=== PATIENT | male | born 1965 | race Two or more races ===

== ENCOUNTER 2024-12-10 14:48 | Emergency (ER) | payer MEDICAID ==
[~2024-12-10] VITALS: Ht 180.3 cm; Wt 71.3 kg
[2024-12-10 14:50] VITALS: BP 181/131; RESP 18; TEMP 97.3; O2SAT 96
--- NOTE | 2024-12-10 15:40 | DVH ---
EXAM: XY CHEST XRAY 1 VIEW Indication: Chest Pain Technique: Single frontal view of the chest was obtained Comparison: XR CHEST 1 VIEW on DOS: 08/21/24, XR CHEST 2 VIEWS on DOS: 08/01/23 FINDINGS: Lines and Tubes: None Lungs: Small bilateral pleural effusions with pleural calcifications and pleural thickening. No pneumothorax. Cardiomediastinal contours: Unremarkable. Atherosclerotic vascular calcifications of the thoracic ao rta are noted. Bones: No acute osseous abnormality. IMPRESSION: Small bilateral pleural effusions with pleural calcifications and pleural thickening.
[2024-12-10 16:26] LABS: Hematocrit 50.4 % (41.0-53.0); Hemoglobin 16.8 g/dL (13.5-17.5); Mean Corpuscular Hemoglobin 31.6 pg (28.0-32.0); Mean Corpuscular Volume 94.5 fL (80.0-100.0); Nucleated Red Blood Cells % 0.2 %
[2024-12-10 16:30] LABS: Chloride 107 mmol/L (98-107); Potassium 4.1 mmol/L (3.5-5.1); Sodium 141 mmol/L (136-145)
[2024-12-10 16:31] LABS: Anion Gap 9 (5-15); Carbon Dioxide 25 mmol/L (20-31)
[2024-12-10 16:32] LABS: Calcium 8.7 mg/dL (8.7-10.4)
[2024-12-10 16:36] LABS: BUN/Creatinine Ratio 13.1 (10.0-20.0); Blood Urea Nitrogen 17 mg/dL (9-23)
[2024-12-10 16:37] LABS: Glucose 120 mg/dL (74-106)
[2024-12-10] MEDS ORDERED: FUROSEMIDE 40 MG/4 ML VIAL IV ONE (16:45)
--- NOTE | 2024-12-10 17:24 | ED.PDOC ---
History of Present Illness HPI Comments 59-year-old male with past medical history of hypertension, CHF presenting for evaluation of shortness of breath, lower extremity edema over the past 3 days. Patient is the told that he had congestive heart failure were in an echo that was performed over 1 year ago. However, states that he does not take Lasix or any water pills for it. He has noticed that his legs were more swollen than what they typically are. Also reports feeling very winded whenever he walks short distances. Denies any current chest pain. Chief Complaint: Shortness of Breath Time Seen by MD: 14:54 Allergies: Coded Allergies: NO KNOWN ALLERGIES (Unverified , 12/10/24) Mode of Arrival: Ambulatory Past Medical History PAST MEDICAL HISTORY: CHF, HTN Constitutional: denies: chills, diaphoresis, fatigue, fever, malaise, sweats, weakness, others EENTM: denies: blurred vision, double vision, ear bleeding, ear discharge, ear drainage, ear pain, ear ringing, eye pain, eye redness, hearing loss, mouth pain, mouth swelling, nasal discharge, nose bleeding, nose congestion, nose pain, photophobia, tearing, throat pain, throat swelling, voice changes, others Respiratory: reports: orthopnea, shortness of breath, SOB with excertion Cardiovascular: denies: chest pain, dizzy spells, diaphoresis, Dyspnea on exertion, edema, irregular heart beat, left arm pain, lightheadedness, palpitations, PND, syncope, others Gastrointestinal: denies: abdomen distended, abdominal pain, blood streaked bowels, constipated, diarrhea, dysphagia, difficulty swallowing, hematemesis, melena, nausea, poor appetite, poor fluid intake, rectal bleeding, rectal pain, vomiting, others Genitourinary: denies: burning, dysuria, flank pain, frequency, hematuria, incontinence, penile discharge, penile sore, pain, testicle pain, testicle swelling, urgency, others Neurological: denies: dizziness, fainting, headache, left sided numbness, left sided weakness, numbness, paresthesia, pre-existing deficit, right sided numbness, right sided weakness, seizure, speech problems, tingling, tremors, weakness, others Musculoskeletal: denies: back pain, gout, joint pain, joint swelling, muscle pain, muscle stiffness, neck pain, others Integumetry: denies: bruises, change in color, change in hair/nails, dryness, laceration, lesions, lumps, rash, wounds, others Allergic/Immunocompromised: denies: Difficulty Healing, Frequent Infections, Hives, Itching, others Hematologic/Lymphatic: denies: anemia, blood clots, easy bleeding, easy bruising, swollen glands, others Endocrine: denies: excessive hunger, excessive sweating, excessive thirst, excessive urination, flushing, intolerance to cold, intolerance to heat, unexplained weight gain, unexplained weight loss, others Psychiatric: denies: anxiety, bipolar disorder, depression, hopeless, panic disorder, schizophrenia, sleepless, suicidal, others Physical Exam General Appearance: None HEENT: Normal ENT Inspection Neck: Normal Inspection Respiratory: Crackles Cardiovascular: No JVD, No Murmur, Other (2+ BLE pitting edema) Breast Exam: Deferred Gastrointestinal: Non Tender, Normal Bowel Sounds Genitalia: Deferred Pelvic: Deferred Rectal: Deferred Extremities: Leg edema Neurologic: Alert, No Motor Deficits, No Sensory Deficits Cerebellar Function: Normal Reflexes: NOT DONE Skin: Normal Color Lymphatic: No Adenopathy Was a procedure done? Was a procedure done?: No EKG EKG : Pulse Rate (adult): 106 [place]: Normal Cardiac Rhythm: ST Block: None Hypertrophy: None Comments +TWI in II, III, aVF, V4-V6 Differential Dx Considerations may include: ACS vs CHF exacerbation vs pneumonia X-Ray, Labs, Meds, VS Vital Signs Date Time Temp Pulse Resp B/P (MAP) Pulse Ox O2 Delivery O2 Flow Rate FiO2 12/10/24 18:02 106 12/10/24 14:58 101 12/10/24 14:50 97.3 102 18 181/131 96 97.3 Lab Test 12/10/24 17:05 12/10/24 16:12 Range/Units Troponin I High Sensitivity 46 47 </=54 ng/L White Blood Count 10.4 4.4-10.8 10^3/uL Red Blood Count 5.33 4.5-5.90 10^6/uL Hemoglobin 16.8 13.5-17.5 g/dL Hematocrit 50.4 41.0-53.0 % Mean Corpuscular Volume 94.5 80.0-100.0 fL Mean Corpuscular Hemoglobin 31.6 28.0-32.0 pg Mean Corpuscular Hemoglobin Concent 33.4 32.0-36.0 g/dL Red Cell Distribution Width 15.7 H 11.8-14.3 % Platelet Count 165 140-450 10^3/uL Mean Platelet Volume 10.3 6.9-10.8 fL Neutrophils (%) (Auto) 74.3 37.0-80.0 % Lymphocytes (%) (Auto) 13.7 10.0-50.0 % Monocytes (%) (Auto) 9.7 0.0-12.0 % Eosinophils (%) (Auto) 1.4 0.0-7.0 % Basophils (%) (Auto) 0.9 0.0-2.0 % Neutrophils # (Auto) 7.7 1.6-8.6 10 ^3/uL Lymphocytes # (Auto) 1.4 0.4-5.4 10 ^3/uL Monocytes # (Auto) 1.0 0-1.3 10 ^3/uL Eosinophils # (Auto) 0.1 0-0.8 10 ^3/uL Basophils # (Auto) 0.1 0-0.2 10 ^3/uL Nucleated Red Blood Cells 0.2 % Sodium Level 141 136-145 mmol/L Potassium Level 4.1 3.5-5.1 mmol/L Chloride Level 107 98-107 mmol/L Carbon Dioxide Level 25 20-31 mmol/L Anion Gap 9 5-15 Blood Urea Nitrogen 17 9-23 mg/dL Creatinine 1.30 0.700-1.30 mg/dL Glomerular Filtration Rate Calc 64 >90 mL/min BUN/Creatinine Ratio 13.1 10.0-20.0 Serum Glucose 120 H 74-106 mg/dL Calcium Level 8.7 8.7-10.4 mg/dL B-Type Natriuretic Peptide 2211.48 0-100 pg/mL Time of 1ST Reevaluation: 18:57 (Patient informed that he should be admitted for further management of his heart failure. However, patient declines admission, will leave against medical advice.) Reevaluation 1ST: Improved Patient Education/Counseling: Diagnosis, Treatment, Need For Follow Up Family Education/Counseling: No Family Present SEPSIS Sepsis Screen Date sepsis recognized/suspect: Dec 10, 2024 Time Sepsis recognized/suspect: 1449 Recent Procedure: No On Antibiotic Therapy: No Respiratory Rate >20: No Heart Rate >90: Yes Temp<36 C (96.8 F) or >38.3 C: No SBP <90 or MAP <65 mmHG: No New Acute Mental Status Change: No Is the patient on CPAP, BIPAP,: No Physician Orders Electrocardigram (12/10/24 15:01) Chest Xray 1 View (12/10/24 15:11) Vital Signs Date Time Temp Pulse Resp B/P (MAP) Pulse Ox O2 Delivery O2 Flow Rate FiO2 12/10/24 18:02 106 12/10/24 14:58 101 12/10/24 14:50 97.3 102 18 181/131 96 97.3 Laboratory Tests Test 12/10/24 16:12 White Blood Count 10.4 10^3/uL (4.4-10.8) Departure 1 Departure Time of Disposition: 17:21 (59-year-old male with past medical history of hypertension, CHF (not currently taking any medications) presenting for evaluation of worsening exertional shortness of breath, lower extremity edema. Patient reporting being diagnosed with heart failure over 1 year ago, however, not currently taking any diuretics. On physical examination does have bilateral lower extremity edema and has crackles in bilateral lungs. Chest x-ray was performed which shows that the patient has bilateral pleural effusions, BNP today is over 2200. Clinically this all seems consistent with likely CHF exacerbation. Patient denying any specific chest pain at this time, however, given the reports of exertional shortness of breath consider possible use with score of 5. High sensitivity troponin is slightly elevated at 47, repeated is stable at 46. High sensitivity troponin likely elevated due to decompensated heart failure. Patient denies any current fever, cough, has no critical leukocytosis, no focal consolidation upon my review of the chest x-ray, does not seem consistent with pneumonia. Patient was written for IV Lasix and oral aspirin. Was recommended admission for his decompensated heart failure. However, patient declined admission. Is leaving against medical advice instead. I will send the patient a prescription for Lasix and refills for his irbesartan, hydrochlorothiazide. Patient stating that he is going to come back in a couple of days.) Impression: Primary Impression: Shortness of breath Additional Impression: Acute exacerbation of CHF (congestive heart failure) Disposition: 07 LEFT AWOL/ELOPED Condition: Stable Additional Instructions: You were evaluated today for shortness of breath. Your workup today was consistent with acute heart failure exacerbation. You were recommended to be admitted for further management. However, you declined. An electronic prescription has been sent to you for Lasix and a prescription refill for your high blood pressure medications. Please return to the emergency department for worsening symptoms despite outpatient management. e-Prescriptions Irbesartan-Hydrochlorothiazide (Irbesartan/Hydrochlorothi 300-12.5 mg) 1 Tab Tab 1 TAB PO DAILY for 30 Days, #30 TAB 1 Refill Prov: NELA MONROY MD 12/10/24 Furosemide (Furosemide) 40 Mg Tab 1 TAB PO DAILY for 30 Days, #30 TAB 5 Refills Prov: NELA MONROY MD 12/10/24 Discharged With: Self Critical Care Note Critical Care Time?: No Stability Stability form required: No Heart Score Heart Score: Heart Score Response (Comments) Value History Slightly Suspicious 0 EKG Normal 0 Age >65 2 Risk Factors 1 or 2 risk factors 1 Troponin >3 x's Normal limit 2 Total 5 NELA MONROY MD Dec 10, 2024 17:24
[2024-12-10] MEDS ORDERED: IRBE300T48 PO (19:02)
[2024-12-10] MEDS ORDERED: FURO40TA4 PO (19:02)
[2024-12-10 19:04] VITALS: PULSE 106
--- NOTE | 2024-12-11 00:25 | ECG ---
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
== END 2024-12-10 18:56 | disposition left against medical advice (07) ==
LOC: ER 14:48
DX: I11.0 Hypertensive heart disease with heart failure (principal); I50.9 Heart failure, unspecified; R06.02 Shortness of breath; R00.0 Tachycardia, unspecified
CPT/HCPCS: 36415; 71045; 80048; 83880; 84484; 85025; 93005